=== PATIENT | female | born 1995 | race Caucasian/White ===

== ENCOUNTER 2019-08-31 15:43 | Emergency (ER) | payer MEDICAID ==
[~2019-08-31] VITALS: Ht 160 cm; Wt 105.5 kg
[2019-08-31] MEDS ORDERED: SUMAtriptan succ. 6 MG/0.5ml vial SQ ONE (16:25)
[2019-08-31] MEDS ORDERED: SUMA100T PO (16:36)
[2019-08-31] MEDS ORDERED: gabapentin 400mg capsule PO STA (16:56)
[2019-08-31] MEDS ORDERED: LORazepam 1 MG tablet PO ONE (17:00)
[2019-08-31] MEDS ORDERED: gabapentin 300mg capsule PO STA (17:09)
[2019-08-31 17:25] VITALS: BP 135/100
== END 2019-08-31 17:27 | disposition home or self-care (01) ==
LOC: ER 15:45
DX: R51 Headache (principal); Z79.899 Other long term (current) drug therapy
CPT/HCPCS: 96372; 99283; J3030